=== PATIENT | female | born 1975 | race Caucasian/White ===

== ENCOUNTER → 2017-09-02 | Outpatient (CLI) | payer OTHER ==
[2017-09-02 12:53] LABS: BASO % 0.6 % (0.0-1.0); EOS # 0.1 10^3/uL (0.0-0.50); EOS % 1.8 % (0.0-3.0); IMMATURE GRANULOCYTE % 0.3 % (0-0); LYMPH # 2.2 10^3/uL (1.5-4.5); LYMPH % 34.3 % (24.0-44.0); MEAN CORPUSCULAR HEMOGLOBIN 29.6 pg (27.0-33.0); MEAN CORPUSCULAR HGB CONC 33.3 g/dl (32.0-36.5); MEAN CORPUSCULAR VOLUME 88.8 fl (80.0-96.0); MONO # 0.4 10^3/uL (0.0-0.8); MONO % 6.5 % (0.0-5.0); NEUTROPHILS # 3.5 10^3/uL (1.8-7.7); NEUTROPHILS % 56.5 % (36.0-66.0); PLATELET COUNT, AUTOMATED 361 10^3/uL (150-450); RED BLOOD COUNT 4.39 10^6/uL (4.00-5.40); RED CELL DISTRIBUTION WIDTH 12.9 % (11.5-14.5); WHITE BLOOD COUNT 6.3 10^3/uL (4.0-10.0)
[2017-09-02 12:59] LABS: TOTAL 25(OH) VITAMIN D 26.8 NG/ML (30.0-100.0)
[2017-09-02 13:00] LABS: FOLATE 14.9 NG/ML; VITAMIN B12 LEVEL 271 PG/ML
[2017-09-02 13:12] LABS: ALBUMIN 3.9 GM/DL (3.2-5.2); ALBUMIN/GLOBULIN RATIO 0.98 (1.00-1.93); ALKALINE PHOSPHATASE 84 U/L (45-117); ALT/SGPT 32 U/L (12-78); ANION GAP 7 MEQ/L (8-16); AST/SGOT 39 U/L (7-37); BILIRUBIN,TOTAL 0.8 MG/DL (0.2-1.0); BLOOD UREA NITROGEN 9 MG/DL (7-18); CALCIUM LEVEL 8.4 MG/DL (8.5-10.1); CARBON DIOXIDE LEVEL 26 MEQ/L (21-32); CHLORIDE LEVEL 103 MEQ/L (98-107); CHOLESTEROL LEVEL 229 MG/DL (<200); CHOLESTEROL RISK RATIO 1.371 (<5); CREATININE FOR GFR 0.65 MG/DL (0.55-1.02); GLOMERULAR FILTRATION RATE > 60.0 (>58); GLUCOSE, FASTING 82 MG/DL (70-105); HDL CHOLESTEROL 167 MG/DL (>40); IRON (FE) 102 UG/DL (50-170); LDL CHOLESTEROL 52.2 MG/DL (<100); NON-HDL-C 62 MG/DL; POTASSIUM SERUM 4.4 MEQ/L (3.5-5.1); RHEUMATOID FACTOR QUANT < 10.0 IU/ML (0-15.0); SODIUM LEVEL 136 MEQ/L (136-145); TOTAL IRON BINDING CAPACITY 443 UG/DL (250-450); TOTAL PROTEIN 7.9 GM/DL (6.4-8.2); TRIGLYCERIDES LEVEL 49 MG/DL (<150)
[2017-09-02 14:13] LABS: ERYTHROCYTE SEDIMENTATION RATE 21 mm/hr (0-20)
[2017-09-03 14:12] LABS: ANTINUCLEAR ANTIBODIES DIRECT Negative (Negative)
== END ==
LOC: M SMT 08:20
DX: M13.0 Polyarthritis, unspecified (principal); Z98.84 Bariatric surgery status; Z13.220 Encounter for screening for lipoid disorders; R63.5 Abnormal weight gain
CPT/HCPCS: 82746

== ENCOUNTER 2018-03-03 10:18 | Emergency (ER) | payer OTHER | END 2018-03-03 11:24 | disposition home or self-care (01) | LOC: M ED 10:18 | DX: S93.492A Sprain of other ligament of left ankle, initial encounter (principal); Z87.81 Personal history of (healed) traumatic fracture; X50.1XXA Overexertion from prolonged static or awkward postures, initial encounter; Y92.098 Other place in other non-institutional residence as the place of occurrence of the external cause; F41.9 Anxiety disorder, unspecified; K25.4 Chronic or unspecified gastric ulcer with hemorrhage; Z88.5 Allergy status to narcotic agent; Z79.899 Other long term (current) drug therapy | CPT/HCPCS: 73610 ==

== ENCOUNTER 2019-01-22 08:51 | Emergency (ER) | payer OTHER ==
[~2019-01-22] VITALS: Ht 172.7 cm; Wt 98.8 kg
[~2019-01-22 08:51] MED LIST: EFFE150C2 PO; IRON65TA PO; PERC5TAB12 PO; PROT1TAB2 PO
[2019-01-22] MEDS ORDERED: PROZ10CA7 PO (09:24)
[2019-01-22 09:28] LABS: BASO % 0.6 % (0.0-1.0); EOS # 0.1 10^3/uL (0.0-0.50); EOS % 1.3 % (0.0-3.0); HEMATOCRIT 34.9 % (36.0-47.0); LYMPH # 1.5 10^3/uL (1.5-4.5); LYMPH % 31.6 % (24.0-44.0); MEAN CORPUSCULAR HEMOGLOBIN 30.5 pg (27.0-33.0); MEAN CORPUSCULAR HGB CONC 34.4 g/dl (32.0-36.5); MEAN CORPUSCULAR VOLUME 88.6 fl (80.0-96.0); MONO # 0.4 10^3/uL (0.0-0.8); NEUTROPHILS # 2.7 10^3/uL (1.8-7.7); NEUTROPHILS % 58.3 % (36.0-66.0); PLATELET COUNT, AUTOMATED 327 10^3/uL (150-450); RED BLOOD COUNT 3.94 10^6/uL (4.00-5.40); WHITE BLOOD COUNT 4.6 10^3/uL (4.0-10.0)
[2019-01-22 09:39] LABS: INR 0.95; PROTHROMBIN TIME 12.8 SECONDS (12.1-14.4)
--- NOTE | 2019-01-22 09:44 | REP ---
CHEST, SINGLE VIEW: Single view of the chest is performed and compared to a prior study of 09/11/2018. Cardiac silhouette appears mildly magnified. There is mild bibasilar fibrotic change without evidence of acute infiltrate. The mediastinal silhouette is unchanged. A couple of tiny metallic clips are seen on the left hilar region. IMPRESSION: There are mild chronic changes without acute infiltrate. Electronically Signed by Rex Wen MD 01/22/2019 04:28 P
[2019-01-22 10:06] LABS: ALT/SGPT 29 U/L (12-78); BILIRUBIN,DIRECT 0.2 MG/DL (0.0-0.2); BILIRUBIN,TOTAL 0.7 MG/DL (0.2-1.0); BLOOD UREA NITROGEN 5 MG/DL (7-18); CALCIUM LEVEL 9.3 MG/DL (8.5-10.1); CARBON DIOXIDE LEVEL 23 MEQ/L (21-32); CHLORIDE LEVEL 105 MEQ/L (98-107); CK-MB VALUE MASS < 1.0 NG/ML (<3.6); CPK CREATINE PHOSPHOKINASE 155 U/L (26-192); CREATININE FOR GFR 0.74 MG/DL (0.55-1.30); GLOMERULAR FILTRATION RATE > 60.0 (>58); GLUCOSE, FASTING 93 MG/DL (70-100); LIPASE 113 U/L (73-393); MB/CK RELATIVE INDEX 0.65 (< OR =4); NT-PRO BNP 166 PG/ML (<125); POTASSIUM SERUM 3.6 MEQ/L (3.5-5.1); SODIUM LEVEL 139 MEQ/L (136-145); TOTAL PROTEIN 7.9 GM/DL (6.4-8.2); TROPONIN I < 0.02 NG/ML (< 0.10)
[2019-01-22 10:25] LABS: D-DIMER QUANT 463.44 ng/ml (<500)
[2019-01-22] MEDS ORDERED: GI COCKTAIL 50ML BTL(HYOSCYAMINE/MAALOX/LIDOCAINE VISCOUS)(1:3:1) PO ONE (12:30)
[2019-01-22 13:35] LABS: CK-MB VALUE MASS < 1.0 NG/ML (<3.6); CPK CREATINE PHOSPHOKINASE 129 U/L (26-192); MB/CK RELATIVE INDEX 0.78 (< OR =4); TROPONIN I < 0.02 NG/ML (< 0.10)
[2019-01-22] MEDS ORDERED: SUCR1TA PO (14:09)
[2019-01-22] MEDS ORDERED: ALPR0.25 PO (14:09)
[2019-01-22 14:43] VITALS: BP 127/67
--- NOTE | 2019-01-23 05:47 | ECGEPIP ---
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
--- NOTE | 2019-01-23 05:57 | ECGEPIP ---
[facility] - ED Test Date: 2019-01-22 Pat Name: MARKUS GAN Department: Room: - Gender: Female Department Head: LYUBOV : 1975 Requested By: SOFIA Carrion Order Number: [id number] Reading MD: Celso Friedman Measurements Intervals [place] Rate: 63 P: 38 [place]: 142 QRS: 23 QRSD: 96 T: 17 QT: 422 QTc: 434 Interpretive Statements SINUS RHYTHM NSTTW ABNORMALITIES SIMILAR TO PRIOR ON SAME DATE Electronically Signed on 01-23-2019 5:57:24 EDT by Celso Friedman
== END 2019-01-22 14:45 | disposition home or self-care (01) ==
LOC: M ED 08:51
DX: K21.0 Gastro-esophageal reflux disease with esophagitis (principal); F41.9 Anxiety disorder, unspecified; Z60.9 Problem related to social environment, unspecified; R07.89 Other chest pain; I49.9 Cardiac arrhythmia, unspecified; K27.9 Peptic ulcer, site unspecified, unspecified as acute or chronic, without hemorrhage or perforation; E27.9 Disorder of adrenal gland, unspecified; Z79.899 Other long term (current) drug therapy; Z88.5 Allergy status to narcotic agent; Z98.84 Bariatric surgery status

== ENCOUNTER → 2019-06-30 | Outpatient (REF) | payer OTHER ==
[~2019-06-30] MED LIST changes: +ALPR0.25 PO; +PROZ10CA7 PO; +SUCR1TA PO
[2019-06-30 22:55] LABS: CHLAMYDIA DNA AMPLIFICATION NEGATIVE (NEGATIVE); GC DNA AMPLIFICATION NEGATIVE (NEGATIVE)
== END ==
LOC: M SFHCLERA 16:17
PROVIDERS: ATTEND Nurse Practitioner Family
DX: R30.0 Dysuria (principal)

== ENCOUNTER → 2019-07-07 | Outpatient (REF) | payer OTHER ==
[2019-07-07 16:14] LABS: BLOOD UREA NITROGEN 7 MG/DL (7-18); CALCIUM LEVEL 9.3 MG/DL (8.5-10.1); CARBON DIOXIDE LEVEL 26 MEQ/L (21-32); CHLORIDE LEVEL 105 MEQ/L (98-107); CREATININE FOR GFR 0.85 MG/DL (0.55-1.30); GLOMERULAR FILTRATION RATE > 60.0 (>58); GLUCOSE, FASTING 99 MG/DL (70-100); SODIUM LEVEL 138 MEQ/L (136-145)
[2019-07-07 16:24] LABS: BASO # 0.1 10^3/uL (0.0-0.2); BASO % 0.7 % (0.0-1.0); EOS # 0.1 10^3/uL (0.0-0.5); HEMATOCRIT 34.6 % (36.0-47.0); HEMOGLOBIN 11.6 g/dl (12.0-15.5); LYMPH # 2.3 10^3/uL (1.5-5.0); LYMPH % 32.6 % (24.0-44.0); MEAN CORPUSCULAR HEMOGLOBIN 30.6 pg (27.0-33.0); MEAN CORPUSCULAR HGB CONC 33.5 g/dl (32.0-36.5); MEAN CORPUSCULAR VOLUME 91.3 fl (80.0-96.0); MONO # 0.7 10^3/uL (0.0-0.8); NEUTROPHILS # 3.9 10^3/uL (1.5-8.5); NEUTROPHILS % 54.8 % (36.0-66.0); PLATELET COUNT, AUTOMATED 428 10^3/uL (150-450); RED BLOOD COUNT 3.79 10^6/uL (4.00-5.40)
== END ==
LOC: M LABDRAW1 15:37
PROVIDERS: ATTEND Family Medicine
DX: N39.0 Urinary tract infection, site not specified (principal)

== ENCOUNTER 2020-01-27 13:43 | Emergency (ER) | payer OTHER ==
[~2020-01-27] VITALS: Ht 172.7 cm; Wt 100.0 kg
[2020-01-27] MEDS ORDERED: FLUO20CA22 (13:48)
[2020-01-27] MEDS ORDERED: ACET-683 PO (13:59)
[2020-01-27] MEDS ORDERED: LIDOCAINE 2% MDV 20ML VIAL SC ONE (14:30)
[2020-01-27 14:43] VITALS: BP 149/74
[2020-01-27] MEDS ORDERED: ROBA750T4 PO (14:44)
--- NOTE | 2020-01-27 19:21 | ECGEPIP ---
[facility] - ED Test Date: 2020-01-27 Pat Name: MARKUS GAN Department: Room: - Gender: Female Data Entry Associate: [facility] : 1975 Requested By: ISIDRA Oconnor PA-C Order Number: [id number] Reading MD: Tristen Chow Measurements Intervals [place] Rate: 71 P: 56 [place]: 147 QRS: 17 QRSD: 98 T: 37 QT: 376 QTc: 411 Interpretive Statements SINUS RHYTHM DELAYED R WAVE PROGRESSION NONSPECIFIC ST T WAVE CHANGES 01/22/[address] T WAVE CHANGES Electronically Signed on 01-27-2020 19:20:56 EDT by Tristen Chow
== END 2020-01-27 14:50 | disposition home or self-care (01) ==
LOC: M ED 13:43
DX: S29.012A Strain of muscle and tendon of back wall of thorax, initial encounter (principal); X58.XXXA Exposure to other specified factors, initial encounter; Y93.F2 Activity, caregiving, lifting; Y92.099 Unspecified place in other non-institutional residence as the place of occurrence of the external cause; Y99.9 Unspecified external cause status; Z86.32 Personal history of gestational diabetes; K27.9 Peptic ulcer, site unspecified, unspecified as acute or chronic, without hemorrhage or perforation; Z98.84 Bariatric surgery status; Z79.899 Other long term (current) drug therapy; Z88.5 Allergy status to narcotic agent

== ENCOUNTER → 2020-02-23 | Outpatient (CLI) | payer OTHER ==
[~2020-02-23] MED LIST changes: +ACET-683 PO; +FLUO20CA22; +ROBA750T4 PO
== END ==
LOC: M LABSMTC 11:32
PROVIDERS: ATTEND Pediatrics
DX: Z11.59 Encounter for screening for other viral diseases (principal); Z03.89 Encounter for observation for other suspected diseases and conditions ruled out
CPT/HCPCS: C9803; U0003

== ENCOUNTER 2020-06-16 07:34 | Emergency (ER) | payer OTHER ==
[~2020-06-16] VITALS: Ht 172.7 cm; Wt 102.3 kg
[2020-06-16 08:10] LABS: BASO % 0.8 % (0.0-1.0); EOS # 0.1 10^3/uL (0.0-0.5); EOS % 1.7 % (0.0-3.0); HEMATOCRIT 34.4 % (36.0-47.0); HEMOGLOBIN 11.3 g/dl (12.0-15.5); LYMPH # 1.4 10^3/uL (1.5-5.0); MEAN CORPUSCULAR HEMOGLOBIN 28.8 pg (27.0-33.0); MEAN CORPUSCULAR HGB CONC 32.8 g/dl (32.0-36.5); MEAN CORPUSCULAR VOLUME 87.5 fl (80.0-96.0); MONO # 0.6 10^3/uL (0.0-0.8); MONO % 10.6 % (0.0-5.0); NEUTROPHILS # 3.2 10^3/uL (1.5-8.5); NEUTROPHILS % 59.7 % (36.0-66.0); PLATELET COUNT, AUTOMATED 328 10^3/uL (150-450); RED BLOOD COUNT 3.93 10^6/uL (4.00-5.40); WHITE BLOOD COUNT 5.3 10^3/uL (4.0-10.0)
--- NOTE | 2020-06-16 08:37 | REPVR ---
PROCEDURE INFORMATION: Exam: XR Chest, 1 View Exam date and time: 06/16/20 (8:09am) Age: 45 years old Clinical indication: Chest pain TECHNIQUE: Imaging protocol: Portable CXR Views: 1 view COMPARISON: Portable CXR of 01/22/19 FINDINGS: Lungs: Unremarkable. No consolidation. Pleural space: Unremarkable. No pleural effusions. No pneumothorax. Heart/Mediastinum: Unremarkable. No cardiomegaly. Bones/joints: Unremarkable. Other findings: A few small surgical clips again project over the left hilar area. IMPRESSION: No acute findings. A similar appearance was noted in December 2018. Electronically signed by: Radha Hughes On 06/16/2020 08:37:59 AM
[2020-06-16 08:41] LABS: ALBUMIN 3.7 GM/DL (3.2-5.2); BILIRUBIN,DIRECT 0.3 MG/DL (0.0-0.2); BILIRUBIN,TOTAL 0.8 MG/DL (0.2-1.0); TOTAL PROTEIN 7.8 GM/DL (6.4-8.2)
[2020-06-16] MEDS ORDERED: ISOVUE-370 76% 100ML VIAL As Ordered ONE (09:14)
[2020-06-16] MEDS ORDERED: KETOROLAC 30 MG/ML 1ML VIAL IV ONE (09:45)
--- NOTE | 2020-06-16 09:53 | REPVR ---
PROCEDURE INFORMATION: Exam: CT Angiography Chest With Contrast Exam date and time: 06/16/2020 9:25 AM Age: 45 years old Clinical indication: Left-sided chest pain; Additional info: Pleuritic left chest pain, elevated d-dimer TECHNIQUE: Imaging protocol: Computed tomographic angiography of the chest with intravenous contrast. 3D rendering (Not supervised by radiologist): MIP and/or 3D reconstructed images were created by the technologist. Radiation optimization: All CT scans at this facility use at least one of these dose optimization techniques: automated exposure control; mA and/or kV adjustment per patient size (includes targeted exams where dose is matched to clinical indication); or iterative reconstruction. Contrast material: ISOVUE 370; Contrast volume: 75 ml; Contrast route: INTRAVENOUS (IV); COMPARISON: CR Chest, 1 view 06/16/2020 8:08 AM FINDINGS: Pulmonary arteries: Normal. No pulmonary emboli. Aorta: No aortic aneurysm. No aortic dissection. Thyroid: The partially imaged bilateral thyroid lobes are unremarkable. Lungs: A anterior subpleural 4.0 mm noncalcified pulmonary nodule is noted in the superior segment of the left lower lobe (LOC 137.1). A 4.3 mm mm noncalcified pulmonary nodule is noted in the lateral basilar segment of the right lower lobe (LOC 170.1). Superior segment lingular mild pulmonary subsegmental atelectasis/scarring. Pleural space: No pneumothorax. No pleural effusion. Heart: Normal. No pericardial effusion. Lymph nodes: Right pulmonary hilar lymph nodes, largest 9.8 mm short axis. Left pulmonary hilar lymph nodes, largest 11.5 mm short axis. Aorticopulmonary window lymph node, 9.3 mm short axis. Subcarinal lymph node 9.3 mm short axis. Right upper paratracheal lymph node 7.9 mm short axis. 3.7 mm and 2.2 mm triangular subpleural lymph nodes right middle lobe at the minor fissure. Gallbladder and bile ducts: The gallbladder is surgically absent, with metallic clips in the gallbladder fossa. Pancreas: Moderate pancreatic atrophy. Stomach and bowel: The patient is status post a gastric bypass procedure with an antecolic Payam-en-Y loop. 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 Thoracic spine vertebral body marginal osteophytes are noted at multiple levels. Soft tissues: Unremarkable. IMPRESSION: 1. No pulmonary embolism identified. 2. No thoracic aortic aneurysm or dissection identified. 3. Mild nonspecific bilateral pulmonary hilar lymphadenopathy. 4. Noncalcified bilateral lower lobe pulmonary nodules. For patients at low risk (minimal or absent history of smoking and of other known risk factors), no routine follow-up is indicated. For patients at high risk (history of smoking or of other known risk factors), consider optional CT at 12 months. (Angel et al., Fleischner Society, 2017). 5. 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 Clinical correlation with the patient's specific symptomatology is recommended. 6. Previous gastric bypass. 7. Prior cholecystectomy. Electronically signed by: Camacho Valencia On 06/16/2020 09:53:13 AM
[2020-06-16] MEDS ORDERED: GI COCKTAIL 50ML BTL(HYOSCYAMINE/MAALOX/LIDOCAINE VISCOUS)(1:3:1) PO ONE (10:15)
[2020-06-16 11:30] VITALS: BP 115/54
[2020-06-16] MEDS ORDERED: SUCR1TAB56 PO (11:32)
--- NOTE | 2020-06-17 20:12 | ECGEPIP ---
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
--- NOTE | 2020-06-18 10:26 | ED PDOC ---
Post-Departure Follow-Up dr ventura faxed formal report of cta chest for fu Tristen Neal MD Jun 18, 2020 10:26
== END 2020-06-16 11:57 | disposition home or self-care (01) ==
LOC: M ED 07:34
DX: K21.9 Gastro-esophageal reflux disease without esophagitis (principal); R91.8 Other nonspecific abnormal finding of lung field; K27.9 Peptic ulcer, site unspecified, unspecified as acute or chronic, without hemorrhage or perforation; Z88.5 Allergy status to narcotic agent; Z79.899 Other long term (current) drug therapy
CPT/HCPCS: 36415; 71045; 71275; 80047; 80076; 83690; 85025; 85379; 93005; 93041; 96374; 99285; J1885; Q9967

== ENCOUNTER → 2020-07-07 | Outpatient (CLI) | payer OTHER ==
[~2020-07-07] MED LIST changes: +SUCR1TAB56 PO
== END ==
LOC: M LABSMTC 09:32
PROVIDERS: ATTEND Anesthesiology
DX: Z01.812 Encounter for preprocedural laboratory examination (principal); Z20.828 Contact with and (suspected) exposure to other viral communicable diseases

== ENCOUNTER 2020-07-12 12:14 | Day surgery (SDC) | payer OTHER ==
[~2020-07-12] VITALS: Ht 172.7 cm; Wt 102.0 kg
[~2020-07-12 12:14] MED LIST changes: +NS 1,000 ML IV ONE
[2020-07-12] MEDS ORDERED: fentaNYL 100 MCG/2 ML INJECTION (J3010) As Ordered ONE (12:55)
[2020-07-12] MEDS ORDERED: LIDOCAINE 2% 100MG/5ML SDV (FOR ANES.) As Ordered ONE (12:55)
[2020-07-12] MEDS ORDERED: propofoL 200 MG/20 ML VIAL As Ordered ONE (12:55)
[2020-07-12 14:25] VITALS: BP 181/85
--- NOTE | 2020-07-12 14:34 | ROOR ---
Patient Name: Sarah Cote Procedure Date: 07/12/2020 1:43 PM Date of : 1975 Age: 45 Room: [facility] Gender: Female Note Status: Finalized Procedure: Upper GI endoscopy Indications: Follow-up of gastric ulcer Providers: Abhishek King MD Referring MD: Yandel Stover MD Requesting Provider: Medicines: Monitored Anesthesia Care Complications: No immediate complications. Procedure: Pre-Anesthesia Assessment: - Prior to the procedure, a History and Physical was performed, and patient medications and allergies were reviewed. The patient is competent. The risks and benefits of the procedure and the sedation options and risks were discussed with the patient. All questions were answered and informed consent was obtained. Patient identification and proposed procedure were verified by the physician, the nurse and the anesthesiologist in the procedure room. Mental Status Examination: alert and oriented. Airway Examination: normal oropharyngeal airway and neck mobility. Respiratory Examination: clear to auscultation. CV Examination: normal. Prophylactic Antibiotics: The patient does not require prophylactic antibiotics. Prior Anticoagulants: The patient has taken no previous anticoagulant or antiplatelet agents. ASA Grade Assessment: II - A patient with mild systemic disease. After reviewing the risks and benefits, the patient was deemed in satisfactory condition to undergo the procedure. The anesthesia plan was to use monitored anesthesia care (MAC). Immediately prior to administration of medications, the patient was re-assessed for adequacy to receive sedatives. The heart rate, respiratory rate, oxygen saturations, blood pressure, adequacy of pulmonary ventilation, and response to care were monitored throughout the procedure. The physical status of the patient was re-assessed after the procedure. The Endoscope was introduced through the mouth, and advanced to the jejunum. The upper GI endoscopy was accomplished without difficulty. The patient tolerated the procedure well. Findings: The examined esophagus was normal. Evidence of a Payam-en-Y gastrojejunostomy was found. The gastrojejunal anastomosis was characterized by congestion, erythema and ulceration. This was traversed. The hlots-gr-ypbxfqc limb was characterized by an intact appearance. The jejunojejunal anastomosis was characterized by healthy appearing mucosa. The oyvhsigt-bp-jpffxcv limb was not examined as it could not be found. Multiple biopsies were obtained in the gastric body and at the anastomosis with cold forceps for histology. Verification of patient identification for the specimen was done by the physician and nurse using the patient's name, date and medical record number. Estimated blood loss was minimal. The examined jejunum was normal. Impression: - Normal esophagus. - Payam-en-Y gastrojejunostomy with gastrojejunal anastomosis characterized by congestion, erythema and ulceration. - Normal examined jejunum. - Multiple biopsies were obtained in the gastric body and at the anastomosis. Recommendation: - Patient has a contact number available for emergencies. The signs and symptoms of potential delayed complications were discussed with the patient. Return to normal activities tomorrow. Written discharge instructions were provided to the patient. - Post gastric bypass diet (small frequent meals and avoid fatty/ fried foods). - Continue present medications. - Await pathology results. - Telephone GI clinic for pathology results in 2 weeks. - Return to primary care physician. Procedure Code(s): --- Professional --- 84022, Esophagogastroduodenoscopy, flexible, transoral; with biopsy, single or multiple Diagnosis Code(s): --- Professional --- Z98.0, Intestinal bypass and anastomosis status K25.9, Gastric ulcer, unspecified as acute or chronic, without hemorrhage or perforation CPT copyright 2019 [employer]. All rights reserved. The codes documented in this report are preliminary and upon label coder review may be revised to meet current compliance requirements. Abhishek King MD Abhishek King MD 07/12/2020 2:33:48 PM Electronically signed by Abhishek King MD Number of Addenda: 0 Note Initiated On: 07/12/2020 1:43 PM Estimated Blood Loss: Estimated blood loss was minimal.
== END 2020-07-12 14:35 | disposition home or self-care (01) ==
LOC: M OPP 12:14
PROVIDERS: ATTEND Internal Medicine Gastroenterology
DX: K25.9 Gastric ulcer, unspecified as acute or chronic, without hemorrhage or perforation (principal); Z98.0 Intestinal bypass and anastomosis status; R10.13 Epigastric pain; Z79.899 Other long term (current) drug therapy; Z88.5 Allergy status to narcotic agent
CPT/HCPCS: 43239; 88305; J3010

== ENCOUNTER → 2020-07-19 | Outpatient (CLI) | payer OTHER ==
[~2020-07-19] MED LIST changes: -NS 1,000 ML IV ONE
[2020-07-19 10:59] LABS: RHEUMATOID FACTOR QUANT < 10.0 IU/ML (<15.0)
[2020-07-19 11:02] LABS: VITAMIN B12 LEVEL 561 PG/ML
[2020-07-20 14:13] LABS: ANTINUCLEAR ANTIBODIES DIRECT Negative (Negative)
[2020-07-22 14:13] LABS: ALBUMIN 3.75 GM/DL (3.29-5.55); ALBUMIN % 53.6 % (55.8-66.1); ALPHA-1-GLOBULIN % 4.9 % (2.9-4.9); ALPHA-1-GLOBULINS 0.34 GM/DL (0.17-0.41); ALPHA-2-GLOBULINS 0.83 GM/DL (0.42-0.99); ALPHA-2-GLOBULINS % 11.8 % (7.1-11.8); BETA-1-GLOBULINS % 7.2 % (4.7-7.2); BETA-2-GLOBULINS 0.36 GM/DL (0.19-0.55); BETA-2-GLOBULINS % 5.2 % (3.2-6.5); GAMMA GLOBULIN % 17.3 % (11.1-18.8); GAMMA GLOBULINS 1.21 GM/DL (0.65-1.58)
== END ==
LOC: M LAB 08:43
PROVIDERS: ATTEND Psychiatry & Neurology Neurology
DX: M79.641 Pain in right hand (principal); M79.642 Pain in left hand; R20.2 Paresthesia of skin

== ENCOUNTER → 2020-11-08 | Outpatient (CLI) | payer OTHER ==
[2020-11-08 14:06] LABS: BASO % 0.7 % (0.0-1.0); EOS # 0.1 10^3/uL (0.0-0.5); EOS % 1.2 % (0.0-3.0); HEMATOCRIT 33.4 % (36.0-47.0); LYMPH # 1.6 10^3/uL (1.5-5.0); LYMPH % 27.8 % (24.0-44.0); MEAN CORPUSCULAR HEMOGLOBIN 29.3 pg (27.0-33.0); MEAN CORPUSCULAR HGB CONC 32.9 g/dl (32.0-36.5); MEAN CORPUSCULAR VOLUME 89.1 fl (80.0-96.0); MONO # 0.5 10^3/uL (0.0-0.8); MONO % 9.6 % (2.0-8.0); NEUTROPHILS # 3.4 10^3/uL (1.5-8.5); NEUTROPHILS % 60.3 % (36.0-66.0); PLATELET COUNT, AUTOMATED 301 10^3/uL (150-450); RED BLOOD COUNT 3.75 10^6/uL (4.00-5.40); WHITE BLOOD COUNT 5.6 10^3/uL (4.0-10.0)
[2020-11-08 14:14] LABS: INR 0.97; PARTIAL THROMBOPLASTIN TIME 29.4 SECONDS (24.2-38.5); PROTHROMBIN TIME 13.1 SECONDS (12.5-14.3)
[2020-11-08 16:19] LABS: ALBUMIN 3.7 GM/DL (3.2-5.2); ALT/SGPT 24 U/L (12-78); BILIRUBIN,TOTAL 0.7 MG/DL (0.2-1.0); BLOOD UREA NITROGEN 9 MG/DL (7-18); CALCIUM LEVEL 9.2 MG/DL (8.5-10.1); CARBON DIOXIDE LEVEL 25 MEQ/L (21-32); CHLORIDE LEVEL 103 MEQ/L (98-107); CREATININE FOR GFR 0.69 MG/DL (0.55-1.30); GLOMERULAR FILTRATION RATE > 60.0 (>58); GLUCOSE, FASTING 82 MG/DL (70-100); POTASSIUM SERUM 3.7 MEQ/L (3.5-5.1); RHEUMATOID FACTOR QUANT < 10.0 IU/ML (<15.0); SODIUM LEVEL 135 MEQ/L (136-145); TOTAL PROTEIN 7.5 GM/DL (6.4-8.2)
== END ==
LOC: M PLALAB 10:30
PROVIDERS: ATTEND Internal Medicine Pulmonary Disease
DX: R91.8 Other nonspecific abnormal finding of lung field (principal)

== ENCOUNTER → 2020-11-18 | Outpatient (CLI) | payer OTHER | LOC: M LABSMTC 10:55 | PROVIDERS: ATTEND Anesthesiology | DX: Z01.812 Encounter for preprocedural laboratory examination (principal); Z20.822 Contact with and (suspected) exposure to COVID-19 ==

== ENCOUNTER 2020-11-23 06:02 | Day surgery (SDC) | payer OTHER ==
[~2020-11-23] VITALS: Ht 172.7 cm; Wt 107.0 kg
[~2020-11-23 06:02] MED LIST changes: +LR 1,000 ML IV SCH
[2020-11-23] MEDS ORDERED: fentaNYL 100 MCG/2 ML INJECTION (J3010) As Ordered ONE ×2 (06:48→07:57)
[2020-11-23] MEDS ORDERED: MIDAZOLAM INJ 2MG/2ML VIAL (J2250 PER 1MG) As Ordered ONE (06:48)
[2020-11-23] MEDS ORDERED: ePHEDrine SULFATE 25 MG/5 ML(5MG/ML) SYRINGE As Ordered ONE (06:49)
[2020-11-23] MEDS ORDERED: ROCURONIUM BROMIDE 50 MG/5 ML VIAL As Ordered ONE (06:49)
[2020-11-23] MEDS ORDERED: dexameTHASONE 4 MG/ML 1ML VIAL (J1100 PER 1MG) As Ordered ONE (06:49)
[2020-11-23] MEDS ORDERED: PHENYLephrine 500MCG 5ML (100MCG/ML) SYRINGE As Ordered ONE (06:49)
[2020-11-23] MEDS ORDERED: propofoL 200 MG/20 ML VIAL As Ordered ONE (06:49)
[2020-11-23] MEDS ORDERED: ONDANSETRON 4MG/2ML VIAL As Ordered ONE (06:49)
[2020-11-23] MEDS ORDERED: LIDOCAINE 2% 100MG/5ML SDV (FOR ANES.) As Ordered ONE (06:49)
[2020-11-23] MEDS ORDERED: SUGAMMADEX SODIUM 500 MG/5 ML VIAL (BRIDION) As Ordered ONE (06:49)
[2020-11-23] MEDS ORDERED: LIDOCAINE VISCOUS 2% SOLN 15ML UDC As Ordered ONE (07:12)
[2020-11-23] MEDS ORDERED: LIDOCAINE 1% SDV 30ML VIAL As Ordered ONE (07:12)
[2020-11-23] MEDS ORDERED: EPINEPHrine 1MG/10ML SYRINGE 1.5IN As Ordered ONE (07:12)
[2020-11-23] MEDS ORDERED: THROMBIN SOLN 5,000 UNITS VIAL As Ordered ONE (07:12)
[2020-11-23] MEDS ORDERED: CETACAINE SPRAY 5GM As Ordered ONE (07:12)
[2020-11-23] MEDS ORDERED: ALBUTEROL SULFATE 2.5 MG/0.5 ML INH NEB SOLN INH ONE (07:15)
[2020-11-23] MEDS ORDERED: LIDOCAINE 4% INJ 5ML AMP NEB ONE (07:15)
[2020-11-23] MEDS ORDERED: ESMOLOL INJ 100MG/10ML VIAL As Ordered ONE (07:41)
[2020-11-23] MEDS ORDERED: ACETAMINOPHEN 1000MG 100ML IV BTL (OFIRMEV) (J0131 PER 10MG) As Ordered ONE (07:44)
--- NOTE | 2020-11-23 08:44 | ROOR ---
Patient Name: Sarah Cote Procedure Date: 11/23/2020 7:11 AM Date of : 1975 Admit Type: Outpatient Age: 45 Room: Main OR Note Status: Finalized Attending MD: Maddie Hilario MD Procedure: Bronchoscopy Indications: Bilateral hilar/mediastinal abnormality, Multiple pulmonary nodules Providers: Maddie Hilario MD (Doctor) Referring MD: No referring provider Requesting Physician: Medicines: Lidocaine 4% via nebulizer with Albuterol 2.5 mg, General Anesthesia, Cetacaine topical Complications: No immediate complications. Estimated blood loss: Minimal Procedure: Pre-Anesthesia Assessment: - Prior to the procedure, a History and Physical was performed, and patient medications and allergies were reviewed. The patient's tolerance of previous anesthesia was also reviewed. The risks and benefits of the procedure and the sedation options and risks were discussed with the patient. All questions were answered, and informed consent was obtained. Prior Anticoagulants: The patient has taken no previous anticoagulant or antiplatelet agents. ASA Grade Assessment: II - A patient with mild systemic disease. After reviewing the risks and benefits, the patient was deemed in satisfactory condition to undergo the procedure. - Patient identification and proposed procedure were verified prior to the procedure by the physician, the nurse, the anesthesiologist, the barratte operator and the studio technician. The procedure was verified in the procedure room. The Bronchoscope was introduced through the mouth, via the endotracheal tube (the patient was intubated for the procedure) and advanced to the tracheobronchial tree of both lungs. The procedure was accomplished without difficulty. The patient tolerated the procedure well. Findings: The endotracheal tube is in good position. The visualized portion of the trachea is of normal caliber. The kevin is sharp. The tracheobronchial tree was examined to at least the first subsegmental level. Bronchial mucosa and anatomy are normal; there was normal anatomic variant in the segmental bronchi of right upper lobe and minimal webbing of mucosa. There are no endobronchial lesions, and only scant secretions. An endobronchial ultrasound endoscope was utilized in order to assist with fine needle aspiration in the right paratracheal area, in the subcarinal area and in the left hilum. Transbronchial needle aspirations of lymph nodes were performed in the right paratracheal area, in the subcarinal area and in the left hilum using an Olympus EBUS-TBNA 21 gauge needle and sent for routine cytology. The procedure was guided by ultrasound. Impression: - Bilateral hilar/mediastinal abnormality - Multiple pulmonary nodules - The airway examination was normal. - Endobronchial ultrasound was performed. - A transbronchial needle aspiration was performed. Recommendation: - Await test results. Procedure Code(s): --- Professional --- 86311, Bronchoscopy, rigid or flexible, including fluoroscopic guidance, when performed; with transbronchial needle aspiration biopsy(s), trachea, main stem and/or lobar bronchus(i) 58408, Bronchoscopy, rigid or flexible, including fluoroscopic guidance, when performed; with transendoscopic endobronchial ultrasound (EBUS) during bronchoscopic diagnostic or therapeutic intervention(s) for peripheral lesion(s) (List separately in addition to code for primary procedure[s]) CPT copyright 2019 [employer]. All rights reserved. The codes documented in this report are preliminary and upon him coder review may be revised to meet current compliance requirements. Maddie Hilario MD 11/23/2020 8:43:59 AM Number of Addenda: 0 Note Initiated On: 11/23/2020 7:11 AM
--- NOTE | 2020-11-23 08:49 | REP ---
INDICATION: POST OP EVAL IN PACU, WILL CALL WHEN READY COMPARISON: 06/16/2020 TECHNIQUE: Portable AP view of the chest FINDINGS: The mediastinum and cardiac silhouette are stable and within normal limits for portable technique. The lung maddox are clear without acute consolidation, effusion, or pneumothorax. Skeletal structures are intact. IMPRESSION: No acute cardiopulmonary process appreciated. <Electronically signed by Chandler Guevara > 11/23/20 [id number]
[2020-11-23 09:04] VITALS: BP 152/82
== END 2020-11-23 09:16 | disposition home or self-care (01) ==
LOC: M SDC 06:02
PROVIDERS: ATTEND Internal Medicine Pulmonary Disease
DX: J84.10 Pulmonary fibrosis, unspecified (principal); K21.9 Gastro-esophageal reflux disease without esophagitis; Z87.19 Personal history of other diseases of the digestive system; F41.9 Anxiety disorder, unspecified; Z98.84 Bariatric surgery status; Z88.5 Allergy status to narcotic agent; Z79.899 Other long term (current) drug therapy
CPT/HCPCS: 31629; 31653; 71045; 88173; 88305; 88312; J0131; J1100; J2250; J2370; J2405; J3010

== ENCOUNTER → 2021-05-22 | Outpatient (CLI) | payer OTHER ==
[~2021-05-22] MED LIST changes: +ISOVUE-370 76% 100ML VIAL ONE; -LR 1,000 ML IV SCH
--- NOTE | 2021-05-22 15:40 | REP ---
INDICATION: SARCOIDOSIS OF LYMPHNODES COMPARISON: Multiple the latest 10/26/2020 TECHNIQUE: Standard helical technique after the intravenous administration of 100 cc Isovue 370 FINDINGS: Mediastinal and hilar adenopathy is again noted but has improved somewhat. There are no pleural or pericardial effusions. There is no change in the imaged upper abdomen or imaged osseous structures. Evaluation of the lung maddox shows multiple stable pulmonary nodules. No new abnormal nodules, masses, or opacities have developed. IMPRESSION: 1. There is been some improvement in the appearance of the mediastinal and hilar adenopathy. 2. Stable pulmonary nodules. No new abnormal nodules, masses, or opacities have developed. <Electronically signed by Bernardo Funes > 05/22/21 [id number]
== END ==
LOC: M PLAIMG 13:27
PROVIDERS: ATTEND Internal Medicine Pulmonary Disease
DX: R59.9 Enlarged lymph nodes, unspecified (principal); D86.1 Sarcoidosis of lymph nodes; R91.8 Other nonspecific abnormal finding of lung field

== ENCOUNTER → 2022-02-03 | Outpatient (CLI) | payer OTHER ==
[~2022-02-03] MED LIST changes: -ISOVUE-370 76% 100ML VIAL ONE
[2022-02-03 13:28] LABS: BASO # 0.1 10^3/uL (0.0-0.2); BASO % 1.1 % (0.0-1.0); EOS # 0.1 10^3/uL (0.0-0.5); EOS % 1.5 % (0.0-3.0); HEMATOCRIT 28.2 % (36.0-47.0); HEMOGLOBIN 9.2 g/dl (12.0-15.5); LYMPH % 36.4 % (24.0-44.0); MEAN CORPUSCULAR HEMOGLOBIN 25.7 pg (27.0-33.0); MEAN CORPUSCULAR HGB CONC 32.6 g/dl (32.0-36.5); MEAN CORPUSCULAR VOLUME 78.8 fl (80.0-96.0); MONO # 0.6 10^3/uL (0.0-0.8); MONO % 11.2 % (2.0-8.0); NEUTROPHILS # 2.7 10^3/uL (1.5-8.5); NEUTROPHILS % 49.4 % (36.0-66.0); PLATELET COUNT, AUTOMATED 403 10^3/uL (150-450); RED BLOOD COUNT 3.58 10^6/uL (4.00-5.40); WHITE BLOOD COUNT 5.4 10^3/uL (4.0-10.0)
[2022-02-03 13:48] LABS: ALBUMIN 3.2 GM/DL (3.2-5.2); ALT/SGPT 17 U/L (12-78); BILIRUBIN,DIRECT 0.2 MG/DL (0.0-0.2); BILIRUBIN,TOTAL 0.5 MG/DL (0.2-1.0); CALCIUM LEVEL 8.3 MG/DL (8.5-10.1); CREATININE FOR GFR 0.68 MG/DL (0.55-1.30); GLOMERULAR FILTRATION RATE > 60.0 (>58); TOTAL PROTEIN 7.1 GM/DL (6.4-8.2)
== END ==
LOC: M LAB 12:14
PROVIDERS: ATTEND Internal Medicine Pulmonary Disease
DX: D86.1 Sarcoidosis of lymph nodes (principal)

== ENCOUNTER → 2022-03-21 | Outpatient (CLI) | payer OTHER ==
[2022-03-21 12:47] LABS: BASO # 0.1 10^3/uL (0.0-0.2); BASO % 0.9 % (0.0-1.0); EOS # 0.1 10^3/uL (0.0-0.5); EOS % 0.9 % (0.0-3.0); HEMATOCRIT 32.2 % (36.0-47.0); HEMOGLOBIN 10.3 g/dl (12.0-15.5); LYMPH # 1.7 10^3/uL (1.5-5.0); MEAN CORPUSCULAR HEMOGLOBIN 25.1 pg (27.0-33.0); MEAN CORPUSCULAR VOLUME 78.3 fl (80.0-96.0); MONO # 0.5 10^3/uL (0.0-0.8); NEUTROPHILS # 4.2 10^3/uL (1.5-8.5); NEUTROPHILS % 63.9 % (36.0-66.0); PLATELET COUNT, AUTOMATED 350 10^3/uL (150-450); RED BLOOD COUNT 4.11 10^6/uL (4.00-5.40); WHITE BLOOD COUNT 6.6 10^3/uL (4.0-10.0)
[2022-03-21 13:48] LABS: ALBUMIN 3.7 GM/DL (3.2-5.2); ALT/SGPT 31 U/L (12-78); BILIRUBIN,TOTAL 0.4 MG/DL (0.2-1.0); BLOOD UREA NITROGEN 7 MG/DL (7-18); CALCIUM LEVEL 9.4 MG/DL (8.5-10.1); CARBON DIOXIDE LEVEL 28 MEQ/L (21-32); CHLORIDE LEVEL 105 MEQ/L (98-107); CREATININE FOR GFR 0.66 MG/DL (0.55-1.30); FERRITIN 13 NG/ML (8-252); GLOMERULAR FILTRATION RATE > 60.0 (>58); GLUCOSE, FASTING 93 MG/DL (70-100); IRON (FE) 27 UG/DL (50-170); PERCENT SATURATION 6.7 % (13.2-45.0); POTASSIUM SERUM 4.8 MEQ/L (3.5-5.1); SODIUM LEVEL 138 MEQ/L (136-145); TOTAL IRON BINDING CAPACITY 405 UG/DL (250-450); TOTAL PROTEIN 7.5 GM/DL (6.4-8.2)
[2022-03-21 14:16] LABS: FOLATE 5.7 NG/ML; VITAMIN B12 LEVEL 399 PG/ML
== END ==
LOC: M LAB 12:02
PROVIDERS: ATTEND Family Medicine
DX: D64.9 Anemia, unspecified (principal); R53.83 Other fatigue

== ENCOUNTER 2022-03-23 08:27 | Emergency (ER) | payer OTHER ==
[~2022-03-23] VITALS: Ht 172.7 cm; Wt 100.2 kg
[2022-03-23] MEDS ORDERED: ALPR0.25 (08:35)
[2022-03-23] MEDS ORDERED: FLUO10CA18 (08:35)
[2022-03-23 10:15] LABS: BASO # 0.1 10^3/uL (0.0-0.2); EOS % 0.6 % (0.0-3.0); HEMATOCRIT 34.6 % (36.0-47.0); HEMOGLOBIN 10.9 g/dl (12.0-15.5); LYMPH # 2.4 10^3/uL (1.5-5.0); LYMPH % 35.5 % (24.0-44.0); MEAN CORPUSCULAR HEMOGLOBIN 24.8 pg (27.0-33.0); MEAN CORPUSCULAR HGB CONC 31.5 g/dl (32.0-36.5); MEAN CORPUSCULAR VOLUME 78.8 fl (80.0-96.0); MONO # 0.8 10^3/uL (0.0-0.8); MONO % 11.3 % (2.0-8.0); NEUTROPHILS # 3.5 10^3/uL (1.5-8.5); NEUTROPHILS % 51.5 % (36.0-66.0); PLATELET COUNT, AUTOMATED 345 10^3/uL (150-450); RED BLOOD COUNT 4.39 10^6/uL (4.00-5.40); WHITE BLOOD COUNT 6.7 10^3/uL (4.0-10.0)
[2022-03-23 10:41] LABS: CK-MB VALUE MASS < 1.0 NG/ML (<3.6); CPK CREATINE PHOSPHOKINASE 112 U/L (26-192); MB/CK RELATIVE INDEX 0.89 (< OR =4)
[2022-03-23 10:42] LABS: ALT/SGPT 28 U/L (12-78); BILIRUBIN,DIRECT 0.2 MG/DL (0.0-0.2); BILIRUBIN,TOTAL 0.6 MG/DL (0.2-1.0); BLOOD UREA NITROGEN 6 MG/DL (7-18); CALCIUM LEVEL 9.6 MG/DL (8.5-10.1); CARBON DIOXIDE LEVEL 26 MEQ/L (21-32); CHLORIDE LEVEL 103 MEQ/L (98-107); CREATININE FOR GFR 0.73 MG/DL (0.55-1.30); GLOMERULAR FILTRATION RATE > 60.0 (>58); GLUCOSE, FASTING 95 MG/DL (70-100); NT-PRO BNP 385 PG/ML (<125); POTASSIUM SERUM 3.9 MEQ/L (3.5-5.1); SODIUM LEVEL 138 MEQ/L (136-145); TOTAL PROTEIN 8.2 GM/DL (6.4-8.2)
[2022-03-23 12:58] LABS: INR 1.06; PROTHROMBIN TIME 14.2 SECONDS (12.7-14.5)
[2022-03-23 12:59] LABS: PARTIAL THROMBOPLASTIN TIME 29.2 SECONDS (25.9-37.0)
[2022-03-23 13:01] LABS: D-DIMER QUANT 698.62 ng/ml (<500)
[2022-03-23] MEDS ORDERED: NS 1,000 ML IV ONE (13:15)
[2022-03-23] MEDS ORDERED: ISOVUE-370 76% 100ML VIAL As Ordered ONE (13:20)
[2022-03-23] MEDS ORDERED: ACETAMINOPHEN 325 MG TAB PO ONE (13:40)
[2022-03-23 14:09] VITALS: BP 146/68
== END 2022-03-23 14:26 | disposition home or self-care (01) ==
LOC: M ED 08:27
DX: F41.9 Anxiety disorder, unspecified (principal); R07.89 Other chest pain; Z98.84 Bariatric surgery status; Z79.899 Other long term (current) drug therapy
CPT/HCPCS: 36415; 71046; 71275; 80048; 80076; 82550; 82553; 83880; 85025; 85379; 85610; 85730; 93005; 96360; 99284; Q9967

== ENCOUNTER → 2022-05-01 | Outpatient (CLI) | payer OTHER ==
[~2022-05-01] MED LIST changes: +FLUO10CA18 PO; +IRON27TA2 PO
== END ==
LOC: M LABSMTC 10:01
PROVIDERS: ATTEND Anesthesiology
DX: Z01.818 Encounter for other preprocedural examination (principal); Z11.52 Encounter for screening for COVID-19

== ENCOUNTER 2022-05-03 09:09 | Day surgery (SDC) | payer OTHER ==
[~2022-05-03] VITALS: Ht 172.7 cm; Wt 98.0 kg
[~2022-05-03 09:09] MED LIST changes: +NS 1,000 ML IV ONE
[2022-05-03] MEDS ORDERED: LIDOCAINE 2% 100MG/5ML SDV (FOR ANES.) As Ordered ONE ×2 (11:11→11:33)
[2022-05-03] MEDS ORDERED: propofoL 200 MG/20 ML VIAL As Ordered ONE ×4 (11:11→12:04)
[2022-05-03 12:30] VITALS: BP 139/67
== END 2022-05-03 13:09 | disposition home or self-care (01) ==
LOC: M OPP 09:09
PROVIDERS: ATTEND Internal Medicine Gastroenterology
DX: Z12.11 Encounter for screening for malignant neoplasm of colon (principal); K63.5 Polyp of colon; K57.30 Diverticulosis of large intestine without perforation or abscess without bleeding; K64.4 Residual hemorrhoidal skin tags; K64.8 Other hemorrhoids; K25.4 Chronic or unspecified gastric ulcer with hemorrhage; Z98.0 Intestinal bypass and anastomosis status; K22.89 Other specified disease of esophagus; D50.9 Iron deficiency anemia, unspecified; M76.30 Iliotibial band syndrome, unspecified leg; D86.2 Sarcoidosis of lung with sarcoidosis of lymph nodes; F41.9 Anxiety disorder, unspecified; Z79.51 Long term (current) use of inhaled steroids; Z79.899 Other long term (current) drug therapy; Z88.5 Allergy status to narcotic agent; Z87.11 Personal history of peptic ulcer disease; Z98.84 Bariatric surgery status; Z80.1 Family history of malignant neoplasm of trachea, bronchus and lung; Z80.3 Family history of malignant neoplasm of breast

== ENCOUNTER → 2022-05-10 | Outpatient (CLI) | payer OTHER ==
[~2022-05-10] MED LIST changes: +ISOVUE-370 76% 100ML VIAL As Ordered ONE; -NS 1,000 ML IV ONE
== END ==
LOC: M RAD 11:02
PROVIDERS: ATTEND Internal Medicine Pulmonary Disease
DX: R91.8 Other nonspecific abnormal finding of lung field (principal)
CPT/HCPCS: 71260; Q9967

== ENCOUNTER → 2023-03-02 | Outpatient (REF) | payer OTHER ==
[~2023-03-02] MED LIST changes: -ISOVUE-370 76% 100ML VIAL As Ordered ONE
== END ==
LOC: M LAB REF 17:30
PROVIDERS: ATTEND Physician Assistant
DX: R30.0 Dysuria (principal)

== ENCOUNTER → 2023-09-16 | Outpatient (CLI) | payer OTHER ==
[~2023-09-16] MED LIST changes: -EFFE150C2 PO; +EFFE150C3 PO
== END ==
LOC: M PLAIMG 09:10
PROVIDERS: ATTEND Internal Medicine Pulmonary Disease
DX: D86.0 Sarcoidosis of lung (principal)